=== PATIENT | female | born 1945 | race Caucasian/White ===

== ENCOUNTER → 2017-03-30 | Outpatient (CLI) | payer MEDICARE ==
[2017-03-30 13:30] LABS: ASPARTATE AMINO TRANSFERASE 19 U/L (15-37); BLOOD UREA NITROGEN 19 mg/dL (7-18)
== END | disposition home or self-care (01) ==
LOC: CFH 09:03
PROVIDERS: ATTEND Internal Medicine
DX: E78.5 Hyperlipidemia, unspecified (principal); I10 Essential (primary) hypertension; R42 Dizziness and giddiness; R60.9 Edema, unspecified
CPT/HCPCS: 36415; 80053; 80061; 84443; 85025

== ENCOUNTER → 2017-08-24 | Outpatient (CLI) | payer MEDICARE | END | disposition home or self-care (01) | LOC: CFH 13:03 | PROVIDERS: ATTEND Internal Medicine | DX: R09.89 Other specified symptoms and signs involving the circulatory and respiratory systems (principal); R13.10 Dysphagia, unspecified | CPT/HCPCS: 74220 ==

== ENCOUNTER → 2017-10-25 | Outpatient (CLI) | payer MEDICARE ==
[2017-10-25 12:58] LABS: BLOOD UREA NITROGEN 22 mg/dL (7-18)
[2017-10-25 13:02] LABS: ASPARTATE AMINO TRANSFERASE 17 U/L (15-37)
== END | disposition home or self-care (01) ==
LOC: CFH 08:04
PROVIDERS: ATTEND Internal Medicine
DX: E78.5 Hyperlipidemia, unspecified (principal); I10 Essential (primary) hypertension
CPT/HCPCS: 36415; 80053; 80061

== ENCOUNTER 2017-10-31 15:04 | Emergency (ER) | payer MEDICARE ==
[~2017-10-31] VITALS: Ht 165.1 cm; Wt 76.0 kg
[2017-10-31] MEDS ORDERED: SODIUM CHLORIDE FLUSH 10ML SYR IVF ONE (15:30)
[2017-10-31] MEDS ORDERED: CEFAZOLIN 1,000 MG IM ONE (15:30)
[2017-10-31] MEDS ORDERED: CEFAZOLIN 1,000 MG ONE (15:33)
[2017-10-31 15:58] LABS: HEMATOCRIT 42.8 % (34.6-47.8); HEMOGLOBIN 14.2 g/dL (11.7-16.4); WHITE BLOOD COUNT 10.7 x10^3/uL (3.4-10)
[2017-10-31] MEDS ORDERED: DEXAMETHASONE 4 MG/ML, 1ML IVPush ONE (16:00)
[2017-10-31] MEDS ORDERED: OXYcodone/APAP 5/325MG TABLET PO ONE (16:00)
[2017-10-31] MEDS ORDERED: DEXAMETHASONE 4 MG/ML, 5ML ONE (16:01)
[2017-10-31] MEDS ORDERED: OXYcodone/APAP 5/325MG TABLET ONE ×2 (16:02→16:18)
[2017-10-31 16:03] LABS: BLOOD UREA NITROGEN 22 mg/dL (7-18)
[2017-10-31] MEDS ORDERED: CEFAZOLIN PMX 1GM/50ML 50 ML ONE (16:07)
[2017-10-31 16:27] VITALS: BP 156/74
[2017-10-31] MEDS ORDERED: CEFAZOLIN PMX 1GM/50ML 50 ML IV ONE (16:30)
== END 2017-10-31 17:31 | disposition home or self-care (01) ==
LOC: ED 16:49
DX: T88.1XXA Other complications following immunization, not elsewhere classified, initial encounter (principal); I10 Essential (primary) hypertension
CPT/HCPCS: 36415; 80048; 82040; 83605; 85025; 93971; 96365; 96375; 99285; J0690; J1100

== ENCOUNTER 2018-04-02 11:43 | Inpatient (IN) | payer MEDICARE ==
[~2018-04-02] VITALS: Ht 165.1 cm; Wt 80.4 kg
[2018-04-02] MEDS ORDERED: SODIUM CHLORIDE 0.9% 1,000 ML IV ONE ×2 (12:39→15:40)
[2018-04-02] MEDS ORDERED: SODIUM CHLORIDE FLUSH 10ML SYR IVF ONE (13:00)
[2018-04-02] MEDS ORDERED: SODIUM CHLORIDE 0.9% 1,000ML IVBOLUS ONE (13:00)
[2018-04-02] MEDS ORDERED: ONDANSETRON ODT 4 MG ONE (13:07)
[2018-04-02 13:08] LABS: BASOPHILS # (AUTO) 0.04 x10^3/uL (0-0.1); BASOPHILS % (AUTO) 0 % (0-1); EOSINOPHILS # (AUTO) 0.18 x10^3/uL (0-0.4); EOSINOPHILS % (AUTO) 1 % (1-7); LYMPHOCYTES # (AUTO) 1.58 x10^3/uL (1-3.4); LYMPHOCYTES % (AUTO) 12 % (22-44); MD NO; MEAN CORPUSCULAR HEMOGLOBIN 31.1 pg (27.0-34.8); MEAN CORPUSCULAR HGB CONC 33.8 g/dL (32.4-35.8); MEAN CORPUSCULAR VOLUME 92.2 fL (80-100); MEAN PLATELET VOLUME 8.7 fL (7.4-10.4); MONOCYTES # (AUTO) 0.76 x10^3/uL (0.2-0.8); MONOCYTES % (AUTO) 6 % (2-9); NEUTROPHILS # (AUTO) 11.24 x10^3/uL (1.8-6.8); NEUTROPHILS % (AUTO) 82 % (42-75); PLATELET COUNT 250 x10^3/uL (130-400); RED BLOOD COUNT 4.94 x10^6/uL (3.82-5.3); RED CELL DISTRIBUTION WIDTH 13.4 % (9.6-15.2)
[2018-04-02 13:20] LABS: ALBUMIN 3.8 g/dL (3.4-5.0); ANION GAP 12 mmol/L (5-15); CALCIUM 9.2 mg/dL (8.5-10.1); CHLORIDE 108 mmol/L (98-107)
[2018-04-02 13:23] LABS: ALANINE AMINOTRANSFERASE 37 U/L (12-78); ALKALINE PHOSPHATASE 102 U/L (45-117); BILIRUBIN,TOTAL 0.8 mg/dL (0.2-1.0); TOTAL PROTEIN 7.8 g/dL (6.4-8.2)
[2018-04-02 13:26] LABS: CULTURE INDICATED? YES; MICROSCOPIC INDICATED
[2018-04-02] MEDS ORDERED: ONDANSETRON ODT 4 MG PO ONE (13:30)
[2018-04-02] MEDS ORDERED: MORPHINE SULFATE 4 MG/ML, 1ML IVPush PRN (13:30)
[2018-04-02 14:06] LABS: CLOSTRIDIUM DIFFICILE ANTIGEN NEGATIVE; CLOSTRIDIUM DIFFICILE TOXIN NEGATIVE (Negative)
[2018-04-02] MEDS ORDERED: OMNIPAQUE 350 MG/ML, 100ML BOTTLE ONE (14:09)
[2018-04-02] MEDS ORDERED: MORPHINE SULFATE 4 MG/ML, 1ML ONE (14:38)
[2018-04-02] MEDS ORDERED: ATOR40TA78 PO (15:55)
[2018-04-02] MEDS ORDERED: MULT-717 PO (15:55)
[2018-04-02] MEDS ORDERED: MONT10TA9 PO (15:55)
[2018-04-02] MEDS ORDERED: LISI-170 PO (15:55)
[2018-04-02] MEDS ORDERED: SODIUM CHLORIDE FLUSH 10ML SYR IVF PRN (16:00)
[2018-04-02] MEDS ORDERED: hydrALAzine 20 MG/ML, 1ML IVPush PRN (16:30)
[2018-04-02] MEDS ORDERED: ONDANSETRON 2MG/ML, 2ML IVPush PRN (16:30)
[2018-04-02] MEDS ORDERED: LORazepam 2 MG/ML, 1ML IVPush ONE (16:30)
[2018-04-02 17:30] LABS: FREE T4 (FREE THYROXINE) 1.08 ng/dL (0.76-1.46); THYROID STIMULATING HORMONE 0.878 mIU/L (0.358-3.740)
[2018-04-02 17:50] VITALS: BP 132/74
[2018-04-02] MEDS: CEFTRIAXONE PMX 2GM/50ML 50 ML IV SCH (18:26)
[2018-04-02] MEDS: SODIUM CHLORIDE 0.9% 1,000 ML IV SCH (18:27)
[2018-04-02] MEDS: ENOXAPARIN 40 MG/0.4 ML SQ SCH (18:27)
[2018-04-02 18:41] VITALS: BP 125/69
[2018-04-02] MEDS: PANTOPRAZOLE 40 MG IV IVPush SCH (20:03)
[2018-04-02] MEDS: morphine SULFATE 10 MG/ML, 1ML IVPush PRN (20:04)
[2018-04-03 01:30] VITALS: BP 144/72
[2018-04-03] MEDS: SODIUM CHLORIDE 0.9% 1,000 ML IV SCH ×3 (02:00→17:55)
[2018-04-03] MEDS: morphine SULFATE 10 MG/ML, 1ML IVPush PRN ×3 (06:17→22:31)
[2018-04-03 06:20] LABS: BASOPHILS # (AUTO) 0.03 x10^3/uL (0-0.1); BASOPHILS % (AUTO) 0 % (0-1); EOSINOPHILS # (AUTO) 0.02 x10^3/uL (0-0.4); EOSINOPHILS % (AUTO) 0 % (1-7); LYMPHOCYTES # (AUTO) 1.37 x10^3/uL (1-3.4); LYMPHOCYTES % (AUTO) 16 % (22-44); MD NO; MEAN CORPUSCULAR HEMOGLOBIN 30.6 pg (27.0-34.8); MEAN CORPUSCULAR HGB CONC 33.4 g/dL (32.4-35.8); MEAN CORPUSCULAR VOLUME 91.7 fL (80-100); MEAN PLATELET VOLUME 8.4 fL (7.4-10.4); MONOCYTES # (AUTO) 0.53 x10^3/uL (0.2-0.8); MONOCYTES % (AUTO) 6 % (2-9); NEUTROPHILS # (AUTO) 6.81 x10^3/uL (1.8-6.8); NEUTROPHILS % (AUTO) 78 % (42-75); PLATELET COUNT 195 x10^3/uL (130-400); RED BLOOD COUNT 4.37 x10^6/uL (3.82-5.3); RED CELL DISTRIBUTION WIDTH 13.9 % (9.6-15.2)
[2018-04-03 06:30] LABS: ALANINE AMINOTRANSFERASE 28 U/L (12-78); ANION GAP 9 mmol/L (5-15); CALCIUM 7.7 mg/dL (8.5-10.1); CHLORIDE 113 mmol/L (98-107); CREATININE 0.69 mg/dL (0.55-1.02)
[2018-04-03 06:32] LABS: ALKALINE PHOSPHATASE 76 U/L (45-117); BILIRUBIN,TOTAL 0.4 mg/dL (0.2-1.0); TOTAL PROTEIN 6.2 g/dL (6.4-8.2)
[2018-04-03 07:21] VITALS: BP 139/77
[2018-04-03] MEDS: PANTOPRAZOLE 40 MG IV IVPush SCH ×2 (09:37→20:49)
[2018-04-03 13:14] VITALS: BP 145/80
[2018-04-03] MEDS: CEFTRIAXONE PMX 2GM/50ML 50 ML IV SCH (17:54)
[2018-04-03] MEDS: ENOXAPARIN 40 MG/0.4 ML SQ SCH (17:55)
[2018-04-03 19:59] VITALS: BP 128/75
[2018-04-04] MEDS: SODIUM CHLORIDE 0.9% 1,000 ML IV SCH ×4 (01:39→21:03)
[2018-04-04 01:54] VITALS: BP 129/78
[2018-04-04 08:00] VITALS: BP 137/76
[2018-04-04] MEDS: morphine SULFATE 10 MG/ML, 1ML IVPush PRN (08:35)
[2018-04-04] MEDS: PANTOPRAZOLE 40 MG IV IVPush SCH ×2 (08:35→20:24)
[2018-04-04] MEDS ORDERED: ONDA4TAB13 SL (10:15)
[2018-04-04 10:48] LABS: BASOPHILS # (AUTO) 0.03 x10^3/uL (0-0.1); BASOPHILS % (AUTO) 0 % (0-1); EOSINOPHILS # (AUTO) 0.12 x10^3/uL (0-0.4); EOSINOPHILS % (AUTO) 2 % (1-7); LYMPHOCYTES # (AUTO) 2.25 x10^3/uL (1-3.4); LYMPHOCYTES % (AUTO) 28 % (22-44); MD NO; MEAN CORPUSCULAR HEMOGLOBIN 30.8 pg (27.0-34.8); MEAN CORPUSCULAR HGB CONC 33.7 g/dL (32.4-35.8); MEAN CORPUSCULAR VOLUME 91.5 fL (80-100); MEAN PLATELET VOLUME 8.5 fL (7.4-10.4); MONOCYTES # (AUTO) 0.94 x10^3/uL (0.2-0.8); MONOCYTES % (AUTO) 12 % (2-9); NEUTROPHILS # (AUTO) 4.67 x10^3/uL (1.8-6.8); NEUTROPHILS % (AUTO) 58 % (42-75); PLATELET COUNT 174 x10^3/uL (130-400); RED BLOOD COUNT 4.03 x10^6/uL (3.82-5.3)
[2018-04-04 10:51] LABS: ALBUMIN 2.8 g/dL (3.4-5.0); ANION GAP 7 mmol/L (5-15); CALCIUM 7.7 mg/dL (8.5-10.1); CHLORIDE 110 mmol/L (98-107)
[2018-04-04 10:56] LABS: ALANINE AMINOTRANSFERASE 26 U/L (12-78); ALKALINE PHOSPHATASE 72 U/L (45-117); BILIRUBIN,TOTAL 0.5 mg/dL (0.2-1.0); CREATININE 0.69 mg/dL (0.55-1.02)
[2018-04-04] MEDS: CEFTRIAXONE PMX 2GM/50ML 50 ML IV SCH (17:02)
[2018-04-04] MEDS: ENOXAPARIN 40 MG/0.4 ML SQ SCH ×2 (17:03→17:10)
[2018-04-04 17:12] VITALS: BP 144/82
[2018-04-04 19:33] VITALS: BP 138/76
[2018-04-05 02:43] VITALS: BP 160/79
[2018-04-05] MEDS: SODIUM CHLORIDE 0.9% 1,000 ML IV SCH (04:49)
[2018-04-05 05:29] LABS: BASOPHILS # (AUTO) 0.03 x10^3/uL (0-0.1); BASOPHILS % (AUTO) 1 % (0-1); EOSINOPHILS # (AUTO) 0.27 x10^3/uL (0-0.4); EOSINOPHILS % (AUTO) 4 % (1-7); LYMPHOCYTES # (AUTO) 2.08 x10^3/uL (1-3.4); LYMPHOCYTES % (AUTO) 34 % (22-44); MD NO; MEAN CORPUSCULAR HEMOGLOBIN 31.5 pg (27.0-34.8); MEAN CORPUSCULAR VOLUME 92.5 fL (80-100); MEAN PLATELET VOLUME 8.7 fL (7.4-10.4); MONOCYTES % (AUTO) 12 % (2-9); NEUTROPHILS # (AUTO) 2.97 x10^3/uL (1.8-6.8); NEUTROPHILS % (AUTO) 49 % (42-75); PLATELET COUNT 181 x10^3/uL (130-400); RED BLOOD COUNT 4.13 x10^6/uL (3.82-5.3); RED CELL DISTRIBUTION WIDTH 13.6 % (9.6-15.2)
[2018-04-05 05:33] LABS: ALANINE AMINOTRANSFERASE 32 U/L (12-78); ALBUMIN 2.9 g/dL (3.4-5.0); ANION GAP 8 mmol/L (5-15); CHLORIDE 111 mmol/L (98-107); CREATININE 0.57 mg/dL (0.55-1.02)
[2018-04-05 05:35] LABS: ALKALINE PHOSPHATASE 73 U/L (45-117); BILIRUBIN,TOTAL 0.7 mg/dL (0.2-1.0); TOTAL PROTEIN 6.4 g/dL (6.4-8.2)
[2018-04-05 06:31] VITALS: BP 144/78
[2018-04-05] MEDS ORDERED: ACET325T21 PO (07:18)
[2018-04-05] MEDS: PANTOPRAZOLE 40 MG IV IVPush SCH (09:09)
[2018-04-05] MEDS ORDERED: ONDA4TAB13 SL (18:26)
== END 2018-04-05 11:41 | disposition home or self-care (01) | DRG 872 ==
LOC: ED 15:39 → EDIP 15:40 → SUATTDRO 16:00 → 3NE 17:43 → DCLOUNGE 04-05 11:27
PROVIDERS: ADMIT Internal Medicine; ATTEND Internal Medicine
DX: A41.9 Sepsis, unspecified organism (principal); E86.0 Dehydration; K76.0 Fatty (change of) liver, not elsewhere classified; K52.9 Noninfective gastroenteritis and colitis, unspecified; K80.20 Calculus of gallbladder without cholecystitis without obstruction; N30.90 Cystitis, unspecified without hematuria; R00.0 Tachycardia, unspecified; E78.5 Hyperlipidemia, unspecified; I10 Essential (primary) hypertension; Z82.49 Family history of ischemic heart disease and other diseases of the circulatory system; Z85.828 Personal history of other malignant neoplasm of skin; Z86.79 Personal history of other diseases of the circulatory system; Z90.710 Acquired absence of both cervix and uterus
CPT/HCPCS: 36415; 74177; 80053; 81001; 83690; 83735; 84100; 84439; 84443; 85025; 87040; 87086; 87324; 89055; 93005; 96361; 96374; J0696; J1650; Q0162; Q9967; C9113; J2270; J7030

== ENCOUNTER → 2018-05-31 | Outpatient (CLI) | payer MEDICARE ==
[~2018-05-31] MED LIST: ACET325T21 PO; ATOR40TA78 PO; LISI-170 PO; MONT10TA9 PO; MULT-717 PO; ONDA4TAB13 SL
[2018-05-31 16:03] LABS: ANION GAP 7 mmol/L (5-15); CALCIUM 8.8 mg/dL (8.5-10.1); CHLORIDE 112 mmol/L (98-107); CREATININE 0.78 mg/dL (0.55-1.02)
== END | disposition home or self-care (01) ==
LOC: CFH 11:38
PROVIDERS: ATTEND Anesthesiology
DX: Z01.812 Encounter for preprocedural laboratory examination (principal)
CPT/HCPCS: 36415; 80048

== ENCOUNTER → 2018-06-19 | Outpatient (CLI) | payer MEDICARE | END | disposition home or self-care (01) | LOC: CFH 06:41 | PROVIDERS: ATTEND Internal Medicine | DX: S83.241A Other tear of medial meniscus, current injury, right knee, initial encounter (principal); M70.41 Prepatellar bursitis, right knee; X58.XXXA Exposure to other specified factors, initial encounter; Y93.89 Activity, other specified; Y92.89 Other specified places as the place of occurrence of the external cause; Y99.8 Other external cause status ==

== ENCOUNTER 2018-11-20 15:03 | Emergency (ER) | payer MEDICARE ==
[~2018-11-20] VITALS: Ht 165.1 cm; Wt 79.5 kg
[2018-11-20 15:10] VITALS: BP 178/74
[2018-11-20] MEDS ORDERED: OXYcodone/APAP 5/325MG TABLET ONE (15:56)
[2018-11-20] MEDS ORDERED: OXYcodone/APAP 5/325MG TABLET PO ONE (16:00)
== END 2018-11-20 16:59 | disposition home or self-care (01) ==
LOC: ED 16:45
DX: S50.01XA Contusion of right elbow, initial encounter (principal); S80.02XA Contusion of left knee, initial encounter; S80.01XA Contusion of right knee, initial encounter; I10 Essential (primary) hypertension; W01.0XXA Fall on same level from slipping, tripping and stumbling without subsequent striking against object, initial encounter; Y93.89 Activity, other specified; Y92.009 Unspecified place in unspecified non-institutional (private) residence as the place of occurrence of the external cause; Y99.8 Other external cause status
CPT/HCPCS: 99283

== ENCOUNTER → 2018-11-22 | Outpatient (CLI) | payer MEDICARE | END | disposition home or self-care (01) | LOC: CFH 12:38 | DX: Z13.820 Encounter for screening for osteoporosis (principal); M85.80 Other specified disorders of bone density and structure, unspecified site; N95.8 Other specified menopausal and perimenopausal disorders | CPT/HCPCS: 77080 ==

== ENCOUNTER → 2019-04-21 | Outpatient (CLI) | payer MEDICARE ==
[~2019-04-21] MED LIST changes: +OMNIPAQUE 350 MG/ML, 100ML BOTTLE ONE
== END | disposition home or self-care (01) ==
LOC: CFH 08:49
PROVIDERS: ATTEND Internal Medicine Cardiovascular Disease
DX: I71.2 Thoracic aortic aneurysm, without rupture (principal); I70.0 Atherosclerosis of aorta
CPT/HCPCS: 71275; Q9967

== ENCOUNTER 2019-05-23 17:38 | Emergency (ER) | payer MEDICARE ==
[~2019-05-23] VITALS: Ht 165.1 cm; Wt 84.1 kg
[~2019-05-23 17:38] MED LIST changes: -OMNIPAQUE 350 MG/ML, 100ML BOTTLE ONE
--- NOTE | 2019-05-23 19:00 | NUR ---
TO ROOM FROM LOBBY. NAD.
--- NOTE | 2019-05-23 19:19 | NUR ---
REPORT GIVEN TO LENIN PLUNKETT.
--- NOTE | 2019-05-23 19:29 | NUR ---
THIS IS A 74 Y/O FEMALE ARRIVING FROM THE [facility] FOR MRI. PT REPORTS SHE HAS THROWN HER BACK BEFORE AND WAS ABLE TO HEAL HER BACK. HOWEVER THIS TIME SHE TOOK HER NSAIDS AND HAD NO RELIEF. PT DENIES ANY SOB, DIZZYNESS OR WEAKNESS. PT DOES REPORT MODERATE LOWER BACK PAIN AND IS STILL ABLE TO AMBULATE. PT HAS EQUAL PULSES AT THIS TIME. AWAITING PT TO EXIT RESTROOM TO CHECK BILATERAL BP. PT HAS NO S/SX OF TRUAMA AT THIS TIME. PT CONNECTED TO MONITORS AND CALL LIGHT IN REACH.
[2019-05-23 19:56] LABS: MICROSCOPIC AUTO
[2019-05-23 20:04] LABS: CULTURE INDICATED? NO
[2019-05-23] MEDS ORDERED: HYDROmorphone 2 MG/ML, 1ML ONE (20:21)
[2019-05-23] MEDS ORDERED: METHOCARBAMOL 750 MG TABLET ONE (20:22)
--- NOTE | 2019-05-23 20:26 | NUR ---
PT MEDICATED PER EMAR. PT HAS FALL RISK INTERVENTIOSNA FTER DILUDID. PT PALCED ON O2 NC FOR SAFETY.
[2019-05-23] MEDS ORDERED: METHOCARBAMOL 750 MG TABLET PO ONE (20:30)
[2019-05-23] MEDS ORDERED: HYDROmorphone 2 MG/ML, 1ML IVPush ONE (20:30)
[2019-05-23 21:38] VITALS: BP 153/72
--- NOTE | 2019-05-23 21:46 | NUR ---
Patient/Caregiver given discharge instructions and they have confirmed that they understand the instructions. Patient ambulatory with steady gait.
== END 2019-05-23 21:57 | disposition home or self-care (01) ==
LOC: ED 21:45
DX: S39.012A Strain of muscle, fascia and tendon of lower back, initial encounter (principal); I10 Essential (primary) hypertension; E78.5 Hyperlipidemia, unspecified; Z85.828 Personal history of other malignant neoplasm of skin; X58.XXXA Exposure to other specified factors, initial encounter; Y93.89 Activity, other specified; Y92.89 Other specified places as the place of occurrence of the external cause; Y99.8 Other external cause status
CPT/HCPCS: 81001; 93005; 96374; 99284; J1170

== ENCOUNTER 2019-10-14 12:36 | Outpatient (CLI) | payer MEDICARE | END 2019-10-14 23:59 | disposition home or self-care (01) | LOC: CVU 12:36 | PROVIDERS: ATTEND Internal Medicine | DX: M79.604 Pain in right leg (principal); M79.605 Pain in left leg; Z86.718 Personal history of other venous thrombosis and embolism | CPT/HCPCS: 93922 ==

== ENCOUNTER 2019-12-01 10:50 | Emergency (ER) | payer MEDICARE ==
[~2019-12-01] VITALS: Ht 165.1 cm; Wt 80.0 kg
[2019-12-01 10:57] VITALS: BP 106/45
[2019-12-01] MEDS ORDERED: IBUPROFEN 600 MG TABLET PO ONE (11:30)
[2019-12-01] MEDS ORDERED: IBUPROFEN 200 MG TABLET ONE (11:38)
== END 2019-12-01 12:15 | disposition home or self-care (01) ==
LOC: ED 11:50
DX: M72.2 Plantar fascial fibromatosis (principal); I10 Essential (primary) hypertension; E78.5 Hyperlipidemia, unspecified
CPT/HCPCS: 99283

== ENCOUNTER 2020-01-29 15:28 | Inpatient (IN) | payer MEDICARE ==
[~2020-01-29] VITALS: Ht 165.1 cm; Wt 69.7 kg
[~2020-01-29 15:28] MED LIST changes: +MONT10TA11 PO; -MONT10TA9 PO
[2020-01-29 16:36] LABS: BASOPHILS # (AUTO) 0.06 x10^3/uL (0-0.1); BASOPHILS % (AUTO) 1 % (0-1); EOSINOPHILS # (AUTO) 0.29 x10^3/uL (0-0.4); EOSINOPHILS % (AUTO) 3 % (1-7); LYMPHOCYTES % (AUTO) 28 % (22-44); MD NO; MEAN CORPUSCULAR HEMOGLOBIN 32.1 pg (27.0-34.8); MEAN CORPUSCULAR HGB CONC 34.1 g/dL (32.4-35.8); MEAN PLATELET VOLUME 9.3 fL (7.4-10.4); MONOCYTES # (AUTO) 0.82 x10^3/uL (0.2-0.8); MONOCYTES % (AUTO) 7 % (2-9); NEUTROPHILS # (AUTO) 6.83 x10^3/uL (1.8-6.8); NEUTROPHILS % (AUTO) 62 % (42-75); PLATELET COUNT 256 x10^3/uL (130-400); RED BLOOD COUNT 4.69 x10^6/uL (3.82-5.3); RED CELL DISTRIBUTION WIDTH 14.5 % (9.6-15.2)
[2020-01-29 16:47] LABS: ALANINE AMINOTRANSFERASE 26 U/L (12-78); ALBUMIN 3.7 g/dL (3.4-5.0); ANION GAP 7 mmol/L (5-15); CALCIUM 9.6 mg/dL (8.5-10.1); CHLORIDE 113 mmol/L (98-107); CREATININE 0.84 mg/dL (0.55-1.02)
[2020-01-29 16:51] LABS: ALKALINE PHOSPHATASE 96 U/L (45-117); BILIRUBIN,TOTAL 0.4 mg/dL (0.2-1.0); TOTAL PROTEIN 7.2 g/dL (6.4-8.2); TROPONIN I < 0.015 ng/mL (0.000-0.045)
[2020-01-29 16:53] LABS: MICROSCOPIC NOT IND
[2020-01-29 17:16] LABS: CULTURE INDICATED? NO
--- NOTE | 2020-01-29 17:29 | NUR ---
BREAK RN: PT REPORTS CONFUSION AND IS CRYING. DR PEREZ AWARE. DAUGHTER REPORTS PT SHE CALLED 911 TODAY FOR CHEST PAIN AND CONFUSION. AFTER SHE WOKE UP FROM HER NAP PT DID NOT REMEMBER WHERE SHE WAS. DR PEREZ AWARE.
--- NOTE | 2020-01-29 17:44 | NUR ---
REPORT GIVEN TO LENIN ENGEL
--- NOTE | 2020-01-29 17:48 | NUR ---
LATE ENTRY: PT BIB BY [facility]. WAS TAKING A NAP AND WOKE UP CONFUSED WITH SOB AND CP. UPON ARRIVAL TO ED SHE DENIED SOB, CP, OR CONFUSION. A0X4. EKG HAS BEEN DONE. BLANKET PROVIDED. CALL LIGHT WITHIN REACH. DAUGHTER IS BEDSIDE.
[2020-01-29] MEDS ORDERED: ENALAPRILAT 1.25 MG/ML, 1ML ONE (17:53)
--- NOTE | 2020-01-29 17:59 | NUR ---
UPON RETURNING FROM BREAK. PT SAID SHE DID NO RECOGNIZE THIS RN AND THAT SHE HAD NO IDEA WHERE SHE WAS OR HOW SHE GOT HERE. PREVIOUSLY, PT WAS A0X4 WITH NO SIGNS OF CONFUSION. PT BP ALSO INCREASED. SEE MAR FOR INTERVENTIONS
[2020-01-29] MEDS ORDERED: ENALAPRILAT 1.25 MG/ML, 2ML IV ONE (18:00)
--- NOTE | 2020-01-29 18:38 | NUR ---
PT IN CT AT THIS TIME
--- NOTE | 2020-01-29 18:46 | NUR ---
PT IS RESTING IN [facility]. BACK FROM CT AND AWAITING CT RESULTS. DAUGHTER IS BEDSIDE. PT SAYS SHE "FEELS A LITTLE BETTER" BUT STILL DOESNT RECALL HOW SHE GOT HERE TODAY.
--- NOTE | 2020-01-29 19:22 | NUR ---
PT RESTING IN [place]. FAMILY BEDSIDE. NO NEEDS AT THIS TIME
--- NOTE | 2020-01-29 20:24 | NUR ---
PT RESTING IN GURNEY. EYES CLOSED. EQUAL CHEST RISE AND FALL WITH EACH BREATH. SON BEDSIDE. NAD. NO NEEDS AT THIS TIME
[2020-01-29] MEDS ORDERED: morphine SULFATE 10 MG/ML, 1ML IVPush PRN (20:30)
[2020-01-29] MEDS ORDERED: ONDANSETRON ODT 4 MG SL PRN (20:30)
[2020-01-29] MEDS ORDERED: NITROGLYCERIN 0.4 MG BOTTLE (25 TABS) SL PRN (20:30)
[2020-01-29] MEDS ORDERED: POLYETHYLENE GLYCOL 17 GM PACKET PO PRN (20:30)
[2020-01-29] MEDS ORDERED: BISACODYL 10 MG SUPP PR PRN (20:30)
--- NOTE | 2020-01-29 20:57 | NUR ---
REPORT GIVEN TO LENIN ROMERO
--- NOTE | 2020-01-29 21:43 | NUR ---
REPORT TO HUA PHELPS ON TELE.
[2020-01-29 22:17] VITALS: BP 158/76
[2020-01-29 22:44] LABS: TROPONIN I < 0.015 ng/mL (0.000-0.045)
[2020-01-29 22:47] VITALS: BP 158/76
[2020-01-29] MEDS: ATORVASTATIN 40 MG TABLET PO SCH (23:21)
[2020-01-29] MEDS: SODIUM CHLORIDE FLUSH 10ML SYR IVF SCH (23:22)
[2020-01-29] MEDS: HEPARIN 5,000 UNITS/ML, 1ML SQ SCH (23:22)
[2020-01-29] MEDS: MONTELUKAST 10 MG TABLET PO SCH (23:22)
[2020-01-30] VITALS (7 sets, daily range): BP systolic 137–162; BP diastolic 68–84
[2020-01-30] MEDS: HEPARIN 5,000 UNITS/ML, 1ML SQ SCH ×3 (04:21→23:29)
[2020-01-30 05:14] LABS: ANION GAP 6 mmol/L (5-15); CALCIUM 8.7 mg/dL (8.5-10.1); CHLORIDE 111 mmol/L (98-107)
[2020-01-30 05:20] LABS: CREATININE 0.72 mg/dL (0.55-1.02); TROPONIN I < 0.015 ng/mL (0.000-0.045)
[2020-01-30 05:24] LABS: BASOPHILS # (AUTO) 0.02 x10^3/uL (0-0.1); BASOPHILS % (AUTO) 0 % (0-1); EOSINOPHILS # (AUTO) 0.31 x10^3/uL (0-0.4); EOSINOPHILS % (AUTO) 4 % (1-7); LYMPHOCYTES # (AUTO) 3.48 x10^3/uL (1-3.4); LYMPHOCYTES % (AUTO) 40 % (22-44); MD NO; MEAN CORPUSCULAR HEMOGLOBIN 31.4 pg (27.0-34.8); MEAN CORPUSCULAR HGB CONC 33.2 g/dL (32.4-35.8); MEAN CORPUSCULAR VOLUME 94.5 fL (80-100); MEAN PLATELET VOLUME 9.9 fL (7.4-10.4); MONOCYTES % (AUTO) 8 % (2-9); NEUTROPHILS # (AUTO) 4.24 x10^3/uL (1.8-6.8); NEUTROPHILS % (AUTO) 48 % (42-75); PLATELET COUNT 233 x10^3/uL (130-400); RED BLOOD COUNT 4.42 x10^6/uL (3.82-5.3); RED CELL DISTRIBUTION WIDTH 14.8 % (9.6-15.2)
[2020-01-30] MEDS: ASPIRIN 81 MG TABLET EC PO SCH (05:36)
[2020-01-30] MEDS: ACETAMINOPHEN 325 MG TABLET PO PRN (05:43)
[2020-01-30] MEDS ORDERED: REGADENOSON 0.4 MG/5 ML SYRINGE ONE (08:28)
[2020-01-30] MEDS: LISINOPRIL 20 MG TABLET PO SCH (08:32)
[2020-01-30] MEDS: MULTIVITAMINS/MINERALS TABLET PO SCH (08:32)
[2020-01-30] MEDS: SODIUM CHLORIDE FLUSH 10ML SYR IVF SCH ×2 (08:33→23:29)
[2020-01-30] MEDS: SENNA/DOCUSATE TABLET PO SCH (08:33)
[2020-01-30] MEDS ORDERED: ASPI81TA45 PO (16:48)
[2020-01-30] MEDS ORDERED: OMNIPAQUE 350 MG/ML, 100ML BOTTLE ONE (17:41)
[2020-01-30] MEDS ORDERED: methylPREDNISolone SOD SUCC 125 MG/2 ML IVPush STA (18:58)
[2020-01-30] MEDS ORDERED: FAMOTIDINE 20 MG/2 ML IVPush STA (18:58)
[2020-01-30] MEDS ORDERED: ALUMINUM/MAG/SIMETHICONE 30 ML UDC PO ONE (18:58)
[2020-01-30] MEDS ORDERED: DIPHENHYDRAMINE 50 MG/ML, 1ML IVPush ONE (19:00)
[2020-01-30] MEDS: ATORVASTATIN 40 MG TABLET PO SCH (23:28)
[2020-01-30] MEDS: MONTELUKAST 10 MG TABLET PO SCH (23:29)
[2020-01-31] VITALS (8 sets, daily range): BP systolic 105–169; BP diastolic 55–77
[2020-01-31] MEDS: ACETAMINOPHEN 325 MG TABLET PO PRN ×2 (02:33→11:34)
[2020-01-31] MEDS: ASPIRIN 81 MG TABLET EC PO SCH (05:40)
[2020-01-31] MEDS: HEPARIN 5,000 UNITS/ML, 1ML SQ SCH ×3 (05:40→20:31)
[2020-01-31] MEDS: MULTIVITAMINS/MINERALS TABLET PO SCH (08:31)
[2020-01-31] MEDS: SODIUM CHLORIDE FLUSH 10ML SYR IVF SCH ×2 (08:32→20:32)
[2020-01-31] MEDS: SENNA/DOCUSATE TABLET PO SCH (08:32)
[2020-01-31] MEDS: LISINOPRIL 20 MG TABLET PO SCH (08:32)
[2020-01-31] MEDS: BUTALB/APAP/CAFFEINE 50MG/325MG/40MG PO PRN ×2 (13:16→16:50)
[2020-01-31] MEDS ORDERED: GADOTERATE 7.5 MMOL/15 ML SYR ONE (16:42)
[2020-01-31] MEDS ORDERED: MAALOX/HYOSCYAMINE/LIDOCAINE 45 ML BTL PO PRN (17:00)
[2020-01-31] MEDS: OMEPRAZOLE 20 MG CAPSULE.DR PO SCH (17:46)
[2020-01-31] MEDS: ATORVASTATIN 40 MG TABLET PO SCH (20:31)
[2020-01-31] MEDS: MONTELUKAST 10 MG TABLET PO SCH (20:31)
[2020-02-01 02:50] VITALS: BP 130/76
[2020-02-01 05:06] LABS: BASOPHILS # (AUTO) 0.03 x10^3/uL (0-0.1); BASOPHILS % (AUTO) 0 % (0-1); EOSINOPHILS % (AUTO) 2 % (1-7); LYMPHOCYTES # (AUTO) 3.55 x10^3/uL (1-3.4); LYMPHOCYTES % (AUTO) 40 % (22-44); MD NO; MEAN CORPUSCULAR HEMOGLOBIN 31.6 pg (27.0-34.8); MEAN CORPUSCULAR HGB CONC 33.3 g/dL (32.4-35.8); MEAN CORPUSCULAR VOLUME 94.8 fL (80-100); MEAN PLATELET VOLUME 9.3 fL (7.4-10.4); MONOCYTES # (AUTO) 0.72 x10^3/uL (0.2-0.8); MONOCYTES % (AUTO) 8 % (2-9); NEUTROPHILS # (AUTO) 4.32 x10^3/uL (1.8-6.8); NEUTROPHILS % (AUTO) 49 % (42-75); PLATELET COUNT 212 x10^3/uL (130-400); RED CELL DISTRIBUTION WIDTH 14.3 % (9.6-15.2)
[2020-02-01 05:18] LABS: CHLORIDE 112 mmol/L (98-107)
[2020-02-01 05:25] LABS: ALANINE AMINOTRANSFERASE 25 U/L (12-78); ALBUMIN 3.2 g/dL (3.4-5.0); ALKALINE PHOSPHATASE 66 U/L (45-117); ANION GAP 7 mmol/L (5-15); BILIRUBIN,TOTAL 0.3 mg/dL (0.2-1.0); CALCIUM 8.5 mg/dL (8.5-10.1); CREATININE 0.71 mg/dL (0.55-1.02); TOTAL PROTEIN 6.3 g/dL (6.4-8.2)
[2020-02-01] MEDS: ASPIRIN 81 MG TABLET EC PO SCH (05:56)
[2020-02-01] MEDS: HEPARIN 5,000 UNITS/ML, 1ML SQ SCH ×2 (05:57→14:26)
[2020-02-01] MEDS: OMEPRAZOLE 20 MG CAPSULE.DR PO SCH (06:04)
[2020-02-01 07:40] VITALS: BP 120/70
[2020-02-01] MEDS: LISINOPRIL 20 MG TABLET PO SCH (09:06)
[2020-02-01] MEDS: MULTIVITAMINS/MINERALS TABLET PO SCH (09:06)
[2020-02-01] MEDS: SODIUM CHLORIDE FLUSH 10ML SYR IVF SCH (09:07)
[2020-02-01] MEDS: SENNA/DOCUSATE TABLET PO SCH (09:07)
[2020-02-01] MEDS ORDERED: LIDODERM 5% PATCH TD SCH (09:30)
[2020-02-01] MEDS ORDERED: OMEP-110 PO (10:59)
[2020-02-01] MEDS ORDERED: LIDODERM REMOVE PATCH NOTE XX SCH (21:30)
== END 2020-02-01 15:45 | disposition home or self-care (01) | DRG 313 ==
LOC: ED 19:45 → EDIP 20:03 → 5SO 21:51
PROVIDERS: ADMIT Family Medicine; ATTEND Internal Medicine
DX: R07.89 Other chest pain (principal); E78.00 Pure hypercholesterolemia, unspecified; E78.5 Hyperlipidemia, unspecified; I10 Essential (primary) hypertension; K21.9 Gastro-esophageal reflux disease without esophagitis; I71.4 Abdominal aortic aneurysm, without rupture; I73.9 Peripheral vascular disease, unspecified; J01.00 Acute maxillary sinusitis, unspecified; K76.0 Fatty (change of) liver, not elsewhere classified; Z82.49 Family history of ischemic heart disease and other diseases of the circulatory system; Z85.828 Personal history of other malignant neoplasm of skin; Z86.79 Personal history of other diseases of the circulatory system; Z90.710 Acquired absence of both cervix and uterus; Z91.030 Bee allergy status; Z91.018 Allergy to other foods; Z88.0 Allergy status to penicillin; Z88.2 Allergy status to sulfonamides; Z88.7 Allergy status to serum and vaccine; Z88.8 Allergy status to other drugs, medicaments and biological substances; Z91.048 Other nonmedicinal substance allergy status; Z88.5 Allergy status to narcotic agent; Z79.82 Long term (current) use of aspirin
CPT/HCPCS: 36415; 70450; 70553; 71045; 71275; 78452; 80048; 80053; 81003; 83880; 84484; 85025; 85379; 93005; 93017; 93306; 93880; 99285; G0378; J1644; J2785; Q9967; A9502; A9575; J1200; J2930; J3490

== ENCOUNTER 2020-05-06 10:18 | Outpatient (CLI) | payer MEDICARE ==
[~2020-05-06 10:18] MED LIST changes: +ACET-2274 PO; -ACET325T21 PO; +ASPI81TA45 PO; +OMEP-110 PO
== END 2020-05-06 23:59 | disposition home or self-care (01) ==
LOC: CFH 10:18 → EDSTATUS 11:00 → CFH 23:59
PROVIDERS: ATTEND Internal Medicine
DX: Z12.31 Encounter for screening mammogram for malignant neoplasm of breast (principal)
CPT/HCPCS: 77067

== ENCOUNTER 2020-05-19 10:25 | Outpatient (CLI) | payer MEDICARE ==
[2020-05-19] MEDS ORDERED: OMNIPAQUE 350 MG/ML, 100ML BOTTLE ONE (12:00)
== END 2020-05-19 23:59 | disposition home or self-care (01) ==
LOC: CFH 10:25
PROVIDERS: ATTEND Internal Medicine Cardiovascular Disease
DX: I71.2 Thoracic aortic aneurysm, without rupture (principal)
CPT/HCPCS: 71275; 82565; Q9967